=== PATIENT | female | born 1980 | race Caucasian/White ===

== ENCOUNTER 2018-05-17 05:21 | Inpatient (IN) ==
[2018-05-17] MEDS ORDERED: Sodium Chlor 0.9% Inj 500 ML IV.SIG SCH (06:00)
[2018-05-17] MEDS ORDERED: Chlorhexidine Gluconate 2% 1 Pack (2 Cloths) TOPICAL SCH (06:00)
[2018-05-17] MEDS ORDERED: ceFAZolin Inj 3,000 MG in Sodium Chlor 0.9% Inj 100 ML IV.SIG PRN (06:03)
[2018-05-17] MEDS ORDERED: Bupivacaine/Epinephrine Inj 0.25% 50 ML Vial ONE (06:58)
[2018-05-17] MEDS: Metoprolol Tartrate 25 MG Tablet PO SCH ×2 (06:59→07:00)
[2018-05-17] MEDS ORDERED: Sugammadex Inj 200 MG/2 ML Vial IV.PUSH ONE (08:52)
[2018-05-17] MEDS ORDERED: Post-op Orders (for Pharmacy) OTHER STA (10:07)
[2018-05-17] MEDS ORDERED: diphenhydrAMINE HCl 12.5 MG/5 ML Elixir UDC PO PRN (10:07)
[2018-05-17] MEDS ORDERED: fentaNYL Citrate Inj 100 MCG/2 ML Ampul ONE ×2 (10:13→10:14)
[2018-05-17] MEDS ORDERED: Naloxone Inj 0.4 MG/ML Vial IV.PUSH PRN (10:13)
[2018-05-17] MEDS ORDERED: Morphine Inj 4 MG/ML Vial ONE (10:14)
[2018-05-17] MEDS ORDERED: *morphine SULFATE 4 MG/ML PERIprocedure ONLY ONE ×2 (10:23→10:49)
--- NOTE | 2018-05-17 10:25 | MP ---
cc: Jimmie Hernández MD DATE OF OPERATION: 05/17/2018 DATE OF PROCEDURE: 05/17/2018 PREOPERATIVE DIAGNOSES: Morbid obesity with a body mass index of 53. POSTOPERATIVE DIAGNOSES: Morbid obesity with a body mass index of 53. PROCEDURE PERFORMED: 1. Laparoscopic vertical sleeve gastrectomy over a 36-Kiswahili ViSiGi bougie. 2. Lysis of adhesions. SURGEON: Jimmie Hernández MD ICE CREAM MAN: Anupam Galeano MD ANESTHESIA: General endotracheal anesthesia. ESTIMATED BLOOD LOSS: Scant. FINDINGS: The patient had extensive adhesions in the and pelvis. She had some filmy adhesions, some adhesions densely adherent. It made it not possible to perform the gastric bypass that was the primary operation of intent. As the patient was consented for a sleeve gastrectomy, it was decided to perform a sleeve gastrectomy. SPECIMENS: None. COMPLICATIONS: None. PROCEDURE IN DETAIL: The patient was brought to the operating room and placed on the operating table in supine position, bilateral sequential inflation device placed on lower extremities. General anesthesia was instituted. Antibiotics was initiated. The abdomen was prepped and draped sterilely. A point 15 cm distal to the xiphoid in the midline was anesthetized with 0.25% Marcaine with epinephrine. A skin incision was made, 5-mm OptiView port placed under direct vision and pneumoperitoneum created. Under direct vision, three 5-mm left upper quadrant, a 12-mm right upper quadrant, 5-mm right upper quadrant ports placed. Prior to placement of all ports the skin and peritoneum were anesthetized with 0.25% Marcaine with epinephrine. The abdominal cavity was inspected. There were extensive adhesions in the pelvis. Lysis of adhesions were undertaken. There were adhesions that were laid about small bowel to the abdominal wall. There were some filmy adhesions. This appeared as though there was a lot of fresh as well as old adhesions. Due to the extent of the adhesions and the possibility of bowel injury, it was decided not to continue with lysis and the gastric bypass and sleeve gastrectomy was performed. The patient was placed in reverse Trendelenburg position left side up, the Emeli-Flex retractor was placed. The left lobe of the liver was retracted. The vasculature along the greater curvature of the stomach was using harmonic scalpel starting a distance 5-cm proximal to the pylorus and carried towards the angle of His. The angle of His was taken down bluntly. Posterior ligamentous attachments were sharply . A 36-Kisw[place]ili ViSiGi bougie was placed at the start of the case, was placed on suction. Division of the stomach started 5 cm proximal to the pylorus and carried towards the angle of His to completely excise approximately 80% of the stomach. This was performed using an [place] Flex stapler at the pylorus. The first firing was with a black load, followed by a green load and four gold loads. All staple loads were reinforced with SeamGuard. A distance of 2 cm was left from the angle incisura and the staple line and a distance of 1 cm left from the GE junction and the staple line. The pylorus was then occluded, methylene blue tinged saline was instilled. There was no evidence of extravasation. The gastrocolic ligament was then sutured to the posterior leaflet of the SeamGuard using a 2-0 Vicryl suture. Bleeding points were controlled with Evicel. The excised stomach was removed from the peritoneal. The fascia at the 15-mm port site was approximated with 0 Vicryl suture. The CO2 was then released, all ports were removed, all skin incisions closed with 4-0 Monocryl. The abdominal wall was cleaned. A sterile dressing was placed. The patient was awakened and taken to the recovery room. MD NINI Geller/AUGIE , 10:00 AM , 10:23 AM LAST
[2018-05-17] MEDS ORDERED: Methylene Blue Inj 10 MG/ML Vial PO ONE ×2 (10:26→11:45)
[2018-05-17] MEDS ORDERED: KCL 20 mEq/NACL 0.45% Inj 1,000 ML ONE (11:06)
[2018-05-17] MEDS ORDERED: Morphine Inj 30 MG/30 ML PCA.VIAL PCA ONE (11:06)
[2018-05-17] MEDS ORDERED: HYDROmorphone PF Inj 2 MG/ML Vial ONE (11:33)
[2018-05-17] MEDS: KCL 20 mEq/NACL 0.45% Inj 1,000 ML IV.CONT SCH ×2 (11:36→19:07)
[2018-05-17] MEDS: Morphine Inj 30 MG/30 ML PCA.VIAL PCA PRN ×2 (11:36→22:58)
[2018-05-17] MEDS ORDERED: Glycopyrrolate Inj 1 MG/5 ML Syringe IV.PUSH ONE (12:00)
[2018-05-17] MEDS ORDERED: Lidocaine PF 1% Inj 5 ML Syringe INFILTRATN ONE (12:00)
[2018-05-17] MEDS ORDERED: Dimethicone/Oxybenzone-Padimate Lip Balm 4.25 GM Tube TOPICAL ONE (13:41)
[2018-05-17] MEDS: Enoxaparin Inj 40 MG/0.4 ML Syringe SQ SCH (15:00)
[2018-05-18] MEDS: Vancomycin Inj 1,000 MG in Sodium Chlor 0.9% Inj 250 ML IV.SIG SCH ×2 (07:21→08:54)
[2018-05-18 08:24] LABS: Baso % (Auto) 0.1 % (0.0-2.0); Hematocrit 32.2 % (35.0-46.0); Hemoglobin 10.4 gm/dL (11.6-15.3); Lymph # (Auto) 1.5 th/mm3 (1.0-4.8); Lymph % (Auto) 8.8 % (9.0-44.0); Mean Corpuscular HGB Conc 32.2 % (32.0-36.0); Mean Corpuscular Volume 80.7 fL (80.0-100.0); Mean Platelet Volume 7.3 fL (7.0-11.0); Mono % (Auto) 5.6 % (0.0-8.0); Neut # (Auto) 14.8 th/mm3 (1.8-7.7); Neut % (Auto) 85.5 % (16.0-70.0); Platelet Count 868 th/mm3 (150-450); Red Blood Count 3.99 mil/mm3 (4.00-5.30); White Blood Count 17.3 th/mm3 (4.0-11.0)
[2018-05-18 08:49] LABS: Anion Gap 18 meq/L (5-15); Blood Urea Nitrogen 6 mg/dL (7-18); Calcium 9.3 mg/dL (8.5-10.1); Carbon Dioxide 17.5 meq/L (21.0-32.0); Chloride 102 meq/L (98-107); Glomerular Filtration Rate Greater Than 89 mL/min (>89); Glucose,Random 93 mg/dL (74-106); Potassium 4.2 meq/L (3.5-5.1); Sodium 137 meq/L (136-145)
[2018-05-18] MEDS: KCL 20 mEq/NACL 0.45% Inj 1,000 ML IV.CONT SCH ×3 (08:53→17:32)
--- NOTE | 2018-05-18 12:32 | P.PNGS ---
Subjective Patient reports: tolerating liquids well Physical Exam Vital signs: Vital Signs 05/17/18 12:30 05/17/18 13:00 05/17/18 14:00 Temperature Pulse Rate 98 H 98 H 92 H Respiratory Rate 18 18 18 Blood Pressure 149/83 H 138/77 142/80 H Pulse Oximetry 97 97 98 05/17/18 15:00 05/17/18 15:35 05/17/18 20:00 Temperature 99.0 F 97.1 F L Pulse Rate 92 H 98 H Respiratory Rate 18 20 Blood Pressure 137/79 125/67 Pulse Oximetry 98 96 05/17/18 21:00 05/18/18 00:35 05/18/18 01:00 Temperature 97.5 F L Pulse Rate 20 L Respiratory Rate 16 20 16 Blood Pressure 123/72 Pulse Oximetry 96 05/18/18 05:07 05/18/18 08:00 Temperature 97.9 F 97.8 F Pulse Rate 84 93 H Respiratory Rate 18 17 Blood Pressure 139/73 131/68 Pulse Oximetry 94 L 97 Intake & Output 05/17/18 05/18/18 05/18/18 18:59 06:59 18:59 Intake Total 1959 / 1959 1100 / 1100 1100 / 1100 Output Total Balance 1949 / 1949 1100 / 1100 1100 / 1100 Intake: IV 1400 / 1400 1100 / 1100 1100 / 1100 Potassium Chlor 20 mEq/NACL 0. 1000 / 1000 1000 / 1000 45% Inj 1,000 ML @ 125 mls/hr IV.CONT .Q8H [facility] Rx#:[id number] Ofirmev Inj 1,000 mg In 100 ml 100 / 100 @ 400 mls/hr IV.SIG DIE TRY OUT WORKER STAMPING PRN Rx#:[id number] LR 1000 mL Inj 1,000 ML @ 30 1000 / 1000 mls/hr IV.SIG .Q24H [facility] Rx#: [id number] Ancef Inj 3,000 MG In NS Inj 100 / 100 100 ML @ 200 mls/hr IV.SIG DIE TRY OUT WORKER STAMPING PRN Rx#:[id number] Flagyl 500 MG Inj 100 ML @ 200 200 / 200 100 / 100 100 / 100 mls/hr IV.SIG Q8H [facility] Rx#: [id number] Oral 60 / 60 Anesthesia Amount 500 / 500 Output: Estimated Blood Loss Narrative: Laboratory Results - last 12 hr 05/18/18 05/18/18 04:49 04:49 WBC 17.3 H RBC 3.99 L Hgb 10.4 L Hct 32.2 L MCV 80.7 MCH 26.0 L MCHC 32.2 RDW 15.0 Plt Count 868 H MPV 7.3 Neut % (Auto) 85.5 H Lymph % (Auto) 8.8 L Wirt % (Auto) 5.6 Eos % (Auto) 0.0 Baso % (Auto) 0.1 Neut # (Auto) 14.8 H Lymph # (Auto) 1.5 Wirt # (Auto) 1.0 H Eos # (Auto) 0.0 Baso # (Auto) 0.0 WBC Differential . Differential Comment Auto diff final Sodium 137 Potassium 4.2 Chloride 102 Carbon Dioxide 17.5 L Anion Gap 18 H BUN 6 L Creatinine 0.53 Estimated GFR Greater than 89 Random Glucose 93 Calcium 9.3 Magnesium 2.0 - Constitutional no acute distress - Routine Respiratory Exam Present: decreased breath sounds, CTA bilaterally - Routine Cardiovascular Exam Present: RRR - Routine Abdominal Exam Present: soft, normoactive bowel sounds, tenderness Comments: normal post-operative tenderness, surgical incisions CDI Assessment and Plan - Assessment (1) Bariatric surgery status Code(s): Z98.84 - Bariatric surgery status Status: Acute Onset Date: ~ - Plan 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 I reviewed and agree with the findings presented. I attest that I had a [id number] encounter with the patient on the same day, and personally performed and documented my assessment and findings in the medical record.
[2018-05-18] MEDS: Enoxaparin Inj 40 MG/0.4 ML Syringe SQ SCH (14:30)
[2018-05-18] MEDS: Acetaminophen-HYDROcodone 325/7.5 Liq 15 ML UDC PO PRN (17:15)
[2018-05-19 05:55] LABS: Hemoglobin 9.9 gm/dL (11.6-15.3); Mean Corpuscular Hemoglobin 25.8 pg (27.0-34.0); Mean Corpuscular Volume 80.5 fL (80.0-100.0); Mean Platelet Volume 7.3 fL (7.0-11.0); Platelet Count 764 th/mm3 (150-450); Red Blood Count 3.85 mil/mm3 (4.00-5.30); Red Cell Distribution Width 15.1 % (11.6-17.2); White Blood Count 17.5 th/mm3 (4.0-11.0)
[2018-05-19] MEDS: Acetaminophen-HYDROcodone 325/7.5 Liq 15 ML UDC PO PRN ×2 (05:57)
--- NOTE | 2018-05-19 13:06 | P.PNGS ---
Subjective Patient reports: no new complaints Physical Exam Vital signs: Vital Signs 05/18/18 16:00 05/18/18 20:00 05/19/18 00:00 Temperature 97.7 F 97.4 F L 98.4 F Pulse Rate 109 H 103 H 116 H Respiratory Rate 17 20 16 Blood Pressure 159/84 H 153/63 H 137/65 Pulse Oximetry 100 96 96 05/19/18 08:00 05/19/18 12:00 Temperature 97.7 F 97.9 F Pulse Rate 114 H 104 H Respiratory Rate 17 18 Blood Pressure 133/82 149/70 H Pulse Oximetry 97 94 L Intake & Output 05/18/18 05/19/18 05/19/18 18:59 06:59 18:59 Intake Total 1520 / 1520 120 / 120 Balance 1520 / 1520 120 / 120 Intake: IV 1100 / 1100 Potassium Chlor 20 mEq/NACL 0. 1000 / 1000 45% Inj 1,000 ML @ 125 mls/hr IV.CONT .Q8H [facility] Rx#:[id number] Flagyl 500 MG Inj 100 ML @ 200 100 / 100 mls/hr IV.SIG Q8H [facility] Rx#: [id number] Oral 420 / 420 120 / 120 Other: # Voids 4 2 # Bowel Movements 0 Narrative: Laboratory Results - last 12 hr 05/19/18 04:45 WBC 17.5 H RBC 3.85 L Hgb 9.9 L Hct 31.0 L MCV 80.5 MCH 25.8 L MCHC 32.0 RDW 15.1 Plt Count 764 H MPV 7.3 - Constitutional no acute distress - Routine Respiratory Exam Present: CTA bilaterally - Routine Cardiovascular Exam Present: RRR - Routine Abdominal Exam Present: tenderness Comments: normal post-operative tenderness Assessment and Plan - Assessment (1) Bariatric surgery status Code(s): Z98.84 - Bariatric surgery status Status: Acute Onset Date: ~ - Plan Repeat CBC prior to follow up Continue to increase fluids Continue with frequent ambulation Code Status: Full Discharge Planning: D/C home later today - Attending Attestation The exam, history, and the medical decision-making described in the above note were completed with the assistance of the mid-level provider. I reviewed and agree with the findings presented. I attest that I had a [id number] encounter with the patient on the same day, and personally performed and documented my assessment and findings in the medical record.
== END 2018-05-19 14:27 | disposition home or self-care (01) ==
LOC: HSDI 05:21 → N07 15:47
PROVIDERS: ADMIT Surgery; ATTEND Surgery